=== PATIENT | male | born 1965 | race Asian ===

== ENCOUNTER 2017-05-18 18:22 | Emergency (ER) | payer OTHER ==
[2017-05-18] MEDS ORDERED: SULFAMETH/TRIMETH DS 800/160 MG TABLET PO STA (20:01)
--- NOTE | 2017-05-18 20:03 | ED Physician Documentation ---
PD HPI SKIN - Stated complaint Stated Complaint: RASH ON LEGS - Chief complaint Chief Complaint: Ext Problem - History obtained from History obtained from: Patient - History of Present Illness Timing - onset: Other (About 2 weeks ago developed an itchy rash on the lower left leg which he thought was ringworm. He saw his doctor and was placed on topical steroid. He continued to worsen and was seen by his physician yesterday and started on dicloxacillin but is much worse today. He does not have any fevers.) Review of Systems Constitutional: denies: Fever, Chills Cardiac: reports: Reviewed and negative Respiratory: reports: Reviewed and negative GI: reports: Reviewed and negative PD PAST MEDICAL HISTORY - Past Medical History Past Medical History: Yes Cardiovascular: Hypertension Neuro: Other Other Past Medical History: "Pinched nerve in C-spine" - Past Surgical History Past Surgical History: Yes General: Appendectomy - Present Medications Home Medications: Ambulatory Orders Medication Instructions Recorded Confirmed Ibuprofen [Motrin] 600 mg PO PRN PRN 12/30/13 05/18/17 Lisinopril/Hydrochlorothiazide 1 tab PO DAILY 12/30/13 05/18/17 [Lisinopril-Hctz 10-12.5 mg Tab] Dicloxacillin [Dynapen] 500 mg PO QID 05/18/17 05/18/17 Gabapentin 300 mg PO PRN PRN 05/18/17 05/18/17 Sulfamethoxazole/Trimethoprim 1 each PO BID 10 Days tablet 05/18/17 [Sulfamethoxazole-Tmp Ds Tablet] diphenhydrAMINE [Benadryl] 25 mg PO TID 05/18/17 05/18/17 - Allergies Allergies/Adverse Reactions: Allergies Allergy/AdvReac Type Severity Reaction Status Date / Time No Known Drug Allergies Allergy Verified 05/18/17 19:23 - Social History Does the pt smoke?: No Smoking Status: Never smoker Does the pt drink ETOH?: No Does the pt have substance abuse?: No - Immunizations Immunizations are current?: Yes PD ED PE NORMAL - Vitals Vital signs reviewed: Yes - General General: Alert and oriented X 3, No acute distress - Extremities Extremities: Other (Weeping cellulitis of both legs, left greater than right.) - Neuro Neuro: Alert and oriented X 3, Normal speech - Psych Psych: Normal mood, Normal affect Results - Vitals Vitals: Vital Signs - 24 hr 05/18/17 18:36 Temperature 37.1 C Heart Rate 91 Respiratory 18 Rate Blood Pressure 185/86 H O2 Saturation 100 Oxygen O2 Source Room air PD MEDICAL DECISION MAKING - ED course ED course: He has weeping cellulitis that has not resolved with dicloxacillin, will add Bactrim. A culture was done. Departure - Departure Disposition: 01 Home, Self Care Clinical Impression: Cellulitis Qualifiers: Site of cellulitis: extremity Site of cellulitis of extremity: lower extremity Laterality: left Qualified Code(s): L03.116 - Cellulitis of left lower limb Condition: Good Record reviewed to determine appropriate education?: Yes Instructions: Cellulitis Dc Prescriptions: Sulfamethoxazole/Trimethoprim [Sulfamethoxazole-Tmp Ds Tablet] 1 each PO BID 10 Days tablet Comments: Follow-up with your doctor tomorrow as scheduled. We are performing a wound culture, the results should be done in 48-72 hours. If antibiotic change is necessary we will call you. Return if worse in the meantime, especially if you develop increased pain, fevers, cannot keep down the medication. Otherwise follow-up with your physician in approximately 2-3 days. Your blood pressure was elevated today on check into the emergency department. This does not mean that you have hypertension, it is a common phenomenon to come to the emergency department and have elevated blood pressure. I recommend that you see your primary care physician within the week to have it rechecked when you are feeling better.
[2017-05-18] MEDS ORDERED: SULFAMETH/TRIMETH DS 800/160 MG TABLET PO ONE (20:24)
[2017-05-18 20:46] VITALS: BP 181/93
== END 2017-05-18 20:44 | disposition home or self-care (01) ==
LOC: ED 18:22
DX: L03.116 Cellulitis of left lower limb (principal); I10 Essential (primary) hypertension
CPT/HCPCS: 87070; 87205; 99282; 99283; A9270

== ENCOUNTER 2021-10-22 20:22 | Emergency (ER) | payer OTHER ==
--- NOTE | 2021-10-22 20:51 | ED Physician Documentation ---
PD HPI LOWER EXT INJURY - Stated complaint Stated Complaint: LEFT ANKLE INJURY - Chief complaint Chief Complaint: Ext Problem PD PAST MEDICAL HISTORY - Past Medical History Past Medical History: Yes Cardiovascular: Hypertension Respiratory: None Neuro: None Endocrine/Autoimmune: None GI: None : None HEENT: None Psych: None Musculoskeletal: None Derm: None - Past Surgical History Past Surgical History: Yes General: Appendectomy - Present Medications Home Medications: Ambulatory Orders Medication Instructions Recorded Confirmed Ibuprofen [Motrin] 600 mg PO PRN PRN 12/30/13 10/22/21 Lisinopril/Hydrochlorothiazide 40 mg PO DAILY 12/30/13 10/22/21 [Lisinopril-Hctz 10-12.5 mg Tab] Gabapentin 300 mg PO PRN PRN 05/18/17 10/22/21 amLODIPine [Norvasc] 5 mg PO DAILY 10/22/21 10/22/21 hydroCHLOROthiazide [Hydrodiuril] 25 mg PO DAILY 10/22/21 10/22/21 - Allergies Allergies/Adverse Reactions: Allergies Allergy/AdvReac Type Severity Reaction Status Date / Time No Known Drug Allergies Allergy Verified 10/22/21 20:33 - Social History Does the pt smoke?: No Smoking Status: Never smoker Does the pt drink ETOH?: No Does the pt have substance abuse?: No - Immunizations Immunizations are current?: Yes - POLST Patient has POLST: No Results - Vitals Vitals: Vital Signs - 24 hr 10/22/21 20:26 Temperature 36.6 C Heart Rate 82 Respiratory 18 Rate Blood Pressure 179/88 H O2 Saturation 98 Oxygen O2 Source Room air
--- NOTE | 2021-10-22 20:52 | ED Physician Documentation ---
History of Present Illness - Stated complaint Stated Complaint: LEFT ANKLE INJURY - Chief complaint Chief Complaint: Ext Problem - History obtained from History obtained from: Patient - History of Present Illness Timing: Enter time (14:00), Yesterday Pain level now: 8 Improved by: rest Worsened by: palpation, weight-bearing - Additonal information Additional information: c/o left ankle pain, mild swelling since 2 pm yesterday without inciting event or injury. The symptoms are limited to the lateral malleolus. Denies h/o similar symptoms, denies fever. He says he has chronic BLE decreased sensation due to a back problem that required surgery last year Review of Systems Constitutional: denies: Fever Cardiac: denies: Chest pain / pressure Respiratory: denies: Dyspnea Skin: denies: Rash Musculoskeletal: reports: Joint pain, Joint swelling, Pain with weight bearing Neurologic: denies: Focal weakness, Numbness PD PAST MEDICAL HISTORY - Past Medical History Past Medical History: Yes Cardiovascular: Hypertension Respiratory: None Neuro: None Endocrine/Autoimmune: None GI: None : None HEENT: None Psych: None Musculoskeletal: None Derm: None - Past Surgical History Past Surgical History: Yes General: Appendectomy - Present Medications Home Medications: Ambulatory Orders Medication Instructions Recorded Confirmed Ibuprofen [Motrin] 600 mg PO PRN PRN 12/30/13 10/22/21 Lisinopril/Hydrochlorothiazide 40 mg PO DAILY 12/30/13 10/22/21 [Lisinopril-Hctz 10-12.5 mg Tab] Gabapentin 300 mg PO PRN PRN 05/18/17 10/22/21 amLODIPine [Norvasc] 5 mg PO DAILY 10/22/21 10/22/21 hydroCHLOROthiazide [Hydrodiuril] 25 mg PO DAILY 10/22/21 10/22/21 - Allergies Allergies/Adverse Reactions: Allergies Allergy/AdvReac Type Severity Reaction Status Date / Time No Known Drug Allergies Allergy Verified 10/22/21 20:33 - Social History Does the pt smoke?: No Smoking Status: Never smoker Does the pt drink ETOH?: No Does the pt have substance abuse?: No - Immunizations Immunizations are current?: Yes - POLST Patient has POLST: No PD ED PE NORMAL - Vitals Vital signs reviewed: Yes - General General: Alert and oriented X 3, No acute distress, Well developed/nourished - Derm Derm: Normal color, Warm and dry, No rash - Extremities Extremities: No deformity, Normal ROM s pain, Other (mild/mod TTP with minimal swelling at left lateral malleolus. no erythema, no abnormal warmth/heat to touch) Results - Vitals Vitals: Oxygen O2 Source Room air - Rads (name of study) left ankle xrays Radiology: Prelim report reviewed, See rad report PD MEDICAL DECISION MAKING - ED course Complexity details: reviewed results, re-evaluated patient, considered differential, d/w patient ED course: atraumatic left ankle pain, lateral aspect since yesterday. Calcaneal bone spurs noted on xray, incidental finding given location of symptoms. No evidence of infectious etiology (such as cellulitis, septic arthritis) or inflammatory etiology (such as gout). Differential includes, but not limited to, strain or overuse, but given lack of findings on exam except for TTP of distal aspect of left lateral malleolus (and noncontributory findings on xray), suspect tendonitis which should respond to rest and minimized weight-bearing for the next few days. Departure - Departure Disposition: 01 Home, Self Care Clinical Impression: Ankle pain, left Qualifiers: Chronicity: acute Qualified Code(s): M25.572 - Pain in left ankle and joints of left foot Condition: Good Instructions: ED Joint Pain Follow-Up: BAMBI WYLIE PA-C [Primary Care Provider] - (3-5 days of symptoms persist) Forms: Activity restrictions Discharge Date/Time: 10/22/21 22:46
--- NOTE | 2021-10-22 22:12 | XRAY Report ---
PROCEDURE: Ankle 3 View LT INDICATIONS: ankle pain, swelling at lateral malleolus TECHNIQUE: 3 views of the ankle were acquired. COMPARISON: None. FINDINGS: Bones: No fractures or dislocations. There is mild degeneration of the tibiotalar joint. There are small plantar and posterior calcaneal enthesophytes. Ankle mortise is normally aligned. No suspiciou s bony lesions. Soft tissues: There is mild periarticular soft tissue swelling most prominent laterally. No tibiotal ar joint effusion. Achilles tendon appears normal. IMPRESSION: 1. No fracture or dislocation. Reviewed by: Best Vides MD on 10/22/2021 10:11 PM PDT Approved by: Best Vides MD on 10/22/2021 10:11 PM PDT Station ID: [id number]
[2021-10-22 22:22] VITALS: BP 173/71
== END 2021-10-22 22:46 | disposition home or self-care (01) ==
LOC: ED 20:22
DX: M25.572 Pain in left ankle and joints of left foot (principal); I10 Essential (primary) hypertension
CPT/HCPCS: 99282; 99283

== ENCOUNTER 2023-05-11 22:57 | Emergency (ER) | payer OTHER ==
[2023-05-11 23:28] LABS: BILIRUBIN,URINE NEGATIVE (NEGATIVE); GLUCOSE, URINE (UA) NEGATIVE (NEGATIVE); KETONES,URINE (UA) NEGATIVE (NEGATIVE); LEUKOCYTE ESTERASE, URINE NEGATIVE (NEGATIVE); NITRITE,URINE NEGATIVE (NEGATIVE); OCCULT BLOOD,URINE SMALL (NEGATIVE); PH,URINE 6.5 PH (5.0-7.5); PROTEIN,URINE NEGATIVE (NEGATIVE); UROBILINOGEN,URINE 0.2 (NORMAL) E.U./dL (NORMAL)
[2023-05-11 23:31] LABS: CLARITY,URINE CLEAR (CLEAR)
[2023-05-11 23:38] LABS: BACTERIA,URINE None Seen /HPF (None Seen); RBC,URINE 0-5 /HPF (0-5); SQUAMOUS EPITHELIAL CELL,UR NONE SEEN (<= Few); WBC,URINE 0-3 /HPF (0-3)
[2023-05-12 01:03] LABS: BASOPHILS # (AUTO) 0.1 10^3/uL (0.0-0.1); BASOPHILS % (AUTO) 0.9 %; EOSINOPHILS # (AUTO) 0.4 10^3/uL (0.0-0.7); EOSINOPHILS % (AUTO) 3.8 %; HCT - HEMATOCRIT 46.9 % (42.0-52.0); HGB - HEMOGLOBIN 15.7 g/dL (14.0-18.0); LYMPHOCYTES # (AUTO) 3.1 10^3/uL (1.5-3.5); LYMPHOCYTES % (AUTO) 32.4 %; MEAN CORPUSCULAR HEMOGLOBIN 28.6 pg (27.0-31.0); MEAN CORPUSCULAR HGB CONC 33.5 g/dL (32.0-36.0); MEAN CORPUSCULAR VOLUME 85.4 fL (80.0-94.0); MEAN PLATELET VOLUME 9.4 fL (7.4-11.4); MONOCYTES % (AUTO) 10.8 %; NEUTROPHILS # (AUTO) 4.9 10^3/uL (1.5-6.6); NEUTROPHILS % (AUTO) 51.5 %; PLT - PLATELET COUNT 274 10^3/uL (130-450); RED BLOOD COUNT 5.49 10^6/uL (4.70-6.10); RED CELL DISTRIBUTION WIDTH 13.2 % (12.0-15.0); WHITE BLOOD COUNT 9.6 x10^3/uL (4.8-10.8)
[2023-05-12 01:40] LABS: ALBUMIN 4.4 g/dL (3.2-5.5)
[2023-05-12 02:01] LABS: ALBUMIN/GLOBULIN RATIO 1.5 (1.0-2.2); BILIRUBIN,TOTAL 0.4 mg/dL (0.2-1.0); CALCIUM 9.7 mg/dL (8.5-10.3); CREATININE 0.8 mg/dL (0.6-1.3); POTASSIUM 3.5 mmol/L (3.5-4.5); TOTAL PROTEIN 7.3 g/dL (6.4-8.9)
[2023-05-12 02:38] VITALS: BP 172/84; O2SAT 97
--- NOTE | 2023-05-12 03:37 | ED Physician Documentation ---
History of Present Illness - Stated complaint Stated Complaint: - Chief complaint Chief Complaint: Abd Pain - History obtained from History obtained from: Patient - Additonal information Additional information: The patient comes to the emergency department chief complaint of left flank pain for the last couple of days. He states it wraps around into his back. He is also had some urinary frequency. No dysuria. No fevers or chills. No nausea or vomiting. No gross blood in his urine. Patient denies any other complaints at this time. PD PAST MEDICAL HISTORY - Past Medical History Cardiovascular: Hypertension Respiratory: None Neuro: None Endocrine/Autoimmune: None GI: None : None HEENT: None Psych: None Musculoskeletal: None Derm: None - Past Surgical History Past Surgical History: Yes General: Appendectomy - Present Medications Home Medications: Ambulatory Orders Medication Instructions Recorded Confirmed Ibuprofen [Motrin] 600 mg PO PRN PRN 12/30/13 10/22/21 Lisinopril/Hydrochlorothiazide 40 mg PO DAILY 12/30/13 10/22/21 [Lisinopril-Hctz 10-12.5 mg Tab] Gabapentin 300 mg PO PRN PRN 05/18/17 10/22/21 amLODIPine [Norvasc] 5 mg PO DAILY 10/22/21 10/22/21 hydroCHLOROthiazide [Hydrodiuril] 25 mg PO DAILY 10/22/21 10/22/21 - Allergies Allergies/Adverse Reactions: Allergies Allergy/AdvReac Type Severity Reaction Status Date / Time No Known Drug Allergies Allergy Verified 05/11/23 23:03 - Social History Does the pt smoke?: No Smoking Status: Never smoker Does the pt drink ETOH?: No Does the pt have substance abuse?: No - Immunizations Immunizations are current?: Yes - POLST Patient has POLST: No PD ED PE NORMAL - Vitals Vital signs reviewed: Yes - General General: Alert and oriented X 3, No acute distress, Well developed/nourished - HEENT HEENT: Atraumatic, PERRL, EOMI, Moist mucous membranes - Neck Neck: Supple, no meningeal sign - Cardiac Cardiac: RRR, No murmur - Respiratory Respiratory: No respiratory distress, Clear bilaterally - Abdomen Abdomen: Soft, Non distended, Other (Mild tenderness left flank, no rebound or guarding.) - Back Back: Other (Mild tenderness extending from left flank over left CVA. No right CVA tenderness.) - Derm Derm: Normal color, Warm and dry, No rash - Extremities Extremities: No deformity - Neuro Neuro: Alert and oriented X 3 - Psych Psych: Normal mood, Normal affect Results - Vitals Vitals: Vital Signs - 24 hr 05/11/23 05/12/23 23:03 02:05 Temperature 36.8 C 36.6 C Heart Rate 71 68 Respiratory 16 19 Rate Blood Pressure 160/84 H 172/84 H O2 Saturation 96 97 Oxygen O2 Source Room air - Labs Labs: Laboratory Tests 05/11/23 05/12/23 05/12/23 23:00 01:00 01:00 WBC 9.6 RBC 5.49 Hgb 15.7 Hct 46.9 MCV 85.4 MCH 28.6 MCHC 33.5 RDW 13.2 Plt Count 274 MPV 9.4 Neut # (Auto) 4.9 Lymph # (Auto) 3.1 [place] # (Auto) 1.0 Eos # (Auto) 0.4 Baso # (Auto) 0.1 Absolute Nucleated RBC 0.00 Nucleated RBC % 0.0 Sodium 137 Potassium 3.5 Chloride 102 Carbon Dioxide 27 Anion Gap 8.0 BUN 13 Creatinine 0.8 Estimated GFR (MDRD) 99 Glucose 133 H Calcium 9.7 Total Bilirubin 0.4 AST 27 ALT 27 Alkaline Phosphatase 66 Total Protein 7.3 Albumin 4.4 Globulin 2.9 Albumin/Globulin Ratio 1.5 Lipase 18 Urine Color YELLOW Urine Clarity CLEAR Urine pH 6.5 Ur Specific [place] <=1.005 Urine Protein NEGATIVE Urine Glucose (UA) NEGATIVE Urine Ketones NEGATIVE Urine Occult Blood SMALL H Urine Nitrite NEGATIVE Urine Bilirubin NEGATIVE Urine Urobilinogen 0.2 (NORMAL) Ur Leukocyte Esterase NEGATIVE Urine RBC 0-5 Urine WBC 0-3 Ur Squamous Epith Cells NONE SEEN Urine Bacteria None Seen Ur Microscopic Review INDICATED Urine Culture Comments NOT INDICATED - Rads (name of study) CT abdomen and pelvis no contrast Relevant Findings:: Final report received, See rad report (Negative for stones or other urinary pathology. Subtle heterogenous appearance of the liver Uncertain significance. Follow-up ultrasound recommended.) PD Medical Decision Making - ED course Complexity details: reviewed results, re-evaluated patient, considered differential, d/w patient ED course: The patient was worked up with urinalysis which showed a small amount of blood microscopically but otherwise no abnormalities. He was also worked up with CT scan of the abdomen and pelvis. This was negative for acute findings. Nothing found to explain the patient's flank and back pain. Liver had a mildly heterogenous appearance which was a finding of uncertain significance. Possible ultrasound and follow-up was recommended. I have relayed this to the patient. I am not sure what is causing his flank and back pain but there is no emergent condition at this time and patient is stable for discharge home. We have discussed the usual indications for return. Departure - Departure Disposition: Home, Self Care Clinical Impression: Back pain Qualifiers: Back pain location: low back pain Chronicity: acute Back pain laterality: left Sciatica presence: without sciatica Qualified Code(s): M54.50 - Low back pain, unspecified Condition: Stable Instructions: ED Flank Pain Uncertain Cause Follow-Up: David Louis MD [Provider Admit Priv/Credential] - Comments: Your urinalysis showed a very slight amount of blood but otherwise negative. Your CT scan did not show any evidence of any problem with your urinary system. It is possible that you could have passed a tiny stone recently and that could account for the small amount of blood in the discomfort you have been having. However, this has not left any trace of evidence on the CT so it is hard to say for sure. The radiologist did note that your liver appears slightly unusual but that this is a very subtle thing and it is not certain if this is significant. You may follow this up with an ultrasound of your liver through your primary doctor. As far as your discomfort, you may take ibuprofen and/or Tylenol to help with this. Please be sure you are drinking plenty of water to help with any bladder irritation when you are having. You may follow-up with the urologist if you do not notice improvement in your symptoms in the next couple of weeks. Forms: PCP List, Activity restrictions Discharge Date/Time: 05/12/23 05:56
[2023-05-12] MEDS ORDERED: SODIUM CHLORIDE 0.9% 1,000 ML ONE (06:34)
--- NOTE | 2023-05-12 08:17 | CT Report ---
PROCEDURE: ABDOMEN/PELVIS WO INDICATIONS: R flank pain TECHNIQUE: A CT scan of the abdomen and pelvis was performed without the use of intravenous contrast. Images we re recorded and evaluated at appropriate window settings. Reformats: coronal and sagittal. For radiat ion dose reduction, the following was used: automated exposure control, adjustment of mA and/or kV ac cording to patient size. COMPARISON: None. FINDINGS: Image quality: Excellent. Lung bases and heart: Calcified granuloma in the right middle lobe. Additional 3 mm nodule in the rig ht middle lobe (series 4, image 3). Liver: Hepatic steatosis. Gallbladder and biliary tree: No radiopaque stones or wall thickening. No biliary dilation. Spleen: No splenomegaly. Pancreas: No pancreatic ductal dilation. Adrenals: 1.4 cm left-sided fat-containing adrenal adenoma based on Hounsfield units criteria (series 3, image 23). Kidneys and ureters: No hydronephrosis. No renal cystic lesion which requires follow up. No solid mas s. Bowel and peritoneum: No bowel distension. No pathologic free fluid. Diverticulosis without evidence of diverticulitis. Lymph nodes: No central or retroperitoneal adenopathy. Vessels: No infrarenal aortic aneurysm. PELVIS Reproductive organs: Unremarkable. Bladder: No wall thickness, accounting for underdistention. Pelvic lymph nodes: No pelvic adenopathy by size criteria. Bones: No aggressive osseous abnormality. Surgical fusion L4-5, without hardware complication. Other: No significant ventral or inguinal hernia. IMPRESSION: No hydronephrosis or obstructing renal stone. 3 mm nodule in the right middle lobe. Consider 12 month follow-up if this patient is at high risk for developing lung cancer, per Fleischner Society guidelines. Hepatic steatosis. Findings are concordant with preliminary interpretation provided by [facility]. Reviewed by: Donte Miller on 05/12/2023 8:16 AM PDT Approved by: Donte Miller on 05/12/2023 8:16 AM PDT Station ID: [id number]
== END 2023-05-12 05:56 | disposition home or self-care (01) ==
LOC: ED 22:57
DX: M54.50 Low back pain, unspecified (principal); R93.2 Abnormal findings on diagnostic imaging of liver and biliary tract
CPT/HCPCS: 36415; 80053; 81001; 81003; 83690; 85025; 87086; 99283; 99284